=== PATIENT | female | born 1955 | race Caucasian/White ===

== ENCOUNTER 2021-07-28 08:33 | Outpatient (CLI) | payer OTHER | END 2021-07-28 08:35 | disposition home or self-care (01) | LOC: SONOGRAMA 08:33 | PROVIDERS: ATTEND Pathology Anatomic Pathology & Clinical Pathology | DX: E04.1 Nontoxic single thyroid nodule (principal) ==

== ENCOUNTER 2023-07-24 07:26 | Emergency (ER) | payer OTHER ==
[~2023-07-24] VITALS: Ht 154.9 cm; Wt 59.0 kg
[2023-07-24] MEDS ORDERED: MELOXICAM15 MG (07:57)
[2023-07-24] MEDS ORDERED: OPTIMAL D31250 MCG PO (07:57)
[2023-07-24] MEDS ORDERED: DEXAMETHASONE4 MG PO (07:58)
[2023-07-24] MEDS ORDERED: ROSUVASTATIN CA10 MG PO (07:58)
[2023-07-24] MEDS ORDERED: OMEGA-3 ACID ETH1 GM PO (07:59)
[2023-07-24] MEDS ORDERED: TELMISARTAN80 MG PO (08:01)
== END 2023-07-24 10:01 | disposition home or self-care (01) ==
LOC: ER 07:26
DX: M76.61 Achilles tendinitis, right leg (principal); M72.2 Plantar fascial fibromatosis; I10 Essential (primary) hypertension

== ENCOUNTER 2023-07-30 07:56 | Outpatient (CLI) | payer OTHER ==
[~2023-07-30 07:56] MED LIST: DEXAMETHASONE4 MG PO; MELOXICAM15 MG; OMEGA-3 ACID ETH1 GM PO; OPTIMAL D31250 MCG PO; ROSUVASTATIN CA10 MG PO; TELMISARTAN80 MG PO
== END 2023-07-30 08:07 | disposition home or self-care (01) ==
LOC: SONOGRAMA 07:56
PROVIDERS: ATTEND General Practice
DX: M79.671 Pain in right foot (principal)